=== PATIENT | male | born 2000 ===

== ENCOUNTER 2024-03-20 04:23 | Emergency (ER) | payer OTHER, SELFPAY ==
[2024-03-20 04:26] VITALS: BP 127/86
--- NOTE | 2024-03-20 04:41 | ED.GENMED ---
History of Present Illness
General
Chief Complaint: Alcohol Problem
Time Seen by Provider: 03/20/24 04:34
Travel History
Have you had any contact with someone who has COVID-19?: No
Do you have any symptoms of coronavirus? Fever > 100 degrees, chills, cough, shortness of breath, sore throat, loss of taste or smell, muscle aches, or headache?: No
History of Present Illness
History of Present Illness:
HPI: The patient states he was in [place] and was pulled over and failed a field sobriety test. He states the breathalyzer read 0 however he was given a citation for [place]. He states he takes Abilify and Zoloft. He denies any illegal substance
use or any other medications. He has no symptoms.
EXAM:
GENERAL: Well appearing in no distress
HEENT: Moist oral mucosa
CARDIOVASCULAR: No murmurs, normal heart rate, regular rhythm, No chest wall tenderness
PULMONARY: No respiratory distress, breath sounds are clear and equal
ABDOMEN: Soft with no peritoneal signs, no tenderness
NEUROLOGIC: Excellent strength all extremities, no coordination deficits, normal finger-nose testing, the patient walked without difficulty
PSYCHIATRIC: Appropriate mental status, normal insight and judgement, the patient does not appear clinically intoxicated
EXTREMITIES: Nontender, no edema, moves all extremities equally
SKIN: No rash, no lesions
TIME OF INITIAL ENCOUNTER: 4:35 AM
NUMBER AND COMPLEXITY OF PROBLEMS ADDRESSED AT THE ENCOUNTER
� Chronic conditions affecting care: No significant past medical history but does take Abilify and Zoloft
� Acute Exacerbation and/or Progression of Chronic Illness: This is an acute problem
� Differential Diagnosis includes: Medication side effect, illegal substance use, no illegal substance use
AMOUNT AND/OR COMPLEXITY OF DATA TO BE REVIEWED AND ANALYZED
� I performed an independent evaluation of and my interpretation is:
EKG:
CT:
X-rays:
Laboratory Studies: UDS entirely negative
Other:
� Review of other/old records: The patient had a sleep study in 2020
� Clinical information was obtained by an independent historian: I spoke to the father bedside
� Prescriptions/Medications Considered but not given:
� Further testing considered but not performed:
RISK OF COMPLICATIONS AND/OR MORBIDITY OR MORTALITY OF PATIENT MANAGEMENT
� Social determinants of health affecting care: Lives at home
� Discussion with other providers:
� Escalation of care including admission/observation vs risk of discharge considered: Although patient states he received a DUI citation and had 0 on the breathalyzer, he wants to prove that he has not had anything else. He just
admits to Abilify and Zoloft use. He denies any benzo use. He denies any other illicit drug. UDS negative.
Phy Exam
Physical Exam
Physical Exam:
See HPI
Scores
Withdrawal Assessment of Alcohol
Withdrawal Assessment Completed?: Not applicable
Course
Orders/Labs/Results
Orders:
Orders
03/20/24 04:48
Drug Screen, Urine [Urine Drug Abuse Screen] Urgent
Date Specimen was Collected: 03/20/24
Time Specimen was Collected: 04:46
Vital Signs
Initial and Last Documented VS:
Initial Vital Signs
Temp Pulse Resp BP Pulse Ox
99.9 F 70 16 127/86 96
03/20/24 04:26 03/20/24 04:26 03/20/24 04:26 03/20/24 04:26 03/20/24 04:26
Last Documented Vital Signs
Temp Pulse Resp BP Pulse Ox
99.9 F 70 16 127/86 96
03/20/24 04:26 03/20/24 04:26 03/20/24 04:26 03/20/24 04:26 03/20/24 04:26
*Critical Care Note
Total Time (30-74mins, 75-104mins- exclusive of procedures): Not Applicable
ED Attending Note
-
Portions of this chart may have been created with voice recognition software.� Occasional wrong word or��sound alike� substitutions may have occurred due to the inherent limitations of voice recognition software.
Discharge Plan
Departure
Referrals:
Domenic Nettles MD [Family Provider] -
Interventions
Interventions:
*Risk Screen - Suicide Last Done: 03/20/24 04:26
*General Assessment Last Done: 03/20/24 04:26
*Neglect/Abuse Screening Last Done: 03/20/24 04:26
ED- Fall Risk Assessment Last Done: 03/20/24 04:35
ED- Neurological Assessment Last Done: 03/20/24 04:35
ED-Psychological Assessment Last Done: 03/20/24 04:35
Discharge Date and Time
Print Language: SWAZI
[2024-03-20 05:37] LABS: Amphetamines Negative (Negative); Barbiturates Negative (Negative); Benzodiazepines Negative (Negative); Buprenorphine Negative (Negative); Cocaine Negative (Negative); Marijuana Negative (Negative); Methadone Negative (Negative); Methamphetamines Negative (Negative); Opiates Negative (Negative); Phencyclidine Negative (Negative); Tricyclic Antidepressants Negative (Negative)
== END 2024-03-20 05:40 | disposition home or self-care (01) ==
LOC: EMR 04:23
PROVIDERS: EMERGENCY PHYSICIAN Emergency Medicine; FAMILY PHYSICIAN Family Medicine
DX: Z03.89 Encounter for observation for other suspected diseases and conditions ruled out (principal); Z79.899 Other long term (current) drug therapy
CPT/HCPCS: 99283; 80306

== ENCOUNTER 2025-03-15 22:38 | Emergency (ER) | payer OTHER, SELFPAY ==
[2025-03-15 22:47] VITALS: BP 136/90
[2025-03-15 23:22] VITALS: BP 131/78
[2025-03-15 23:24] VITALS: BMI 24.3
--- NOTE | 2025-03-15 23:45 | ED.GENMED ---
History of Present Illness
General
Chief Complaint: Crisis Evaluation
Source: patient and family
Exam Limitations: none
Time Seen by Provider: 03/15/25 23:16
Nursing documentation reviewed up to this point in time: agreed with
History of Present Illness
History of Present Illness:
Note:
CHIEF COMPLAINT(S)
Depression
HISTORY OF PRESENT ILLNESS
The patient is a 24-year-old male presenting with symptoms of depression. He reports feeling down and describes his mood as depressed, although he denies any suicidal or homicidal ideation. The patient has a history of prior psychiatric
hospitalization and has experienced episodes in the past, indicating a recurrent pattern, but he mentions it has been a while since the last issue. He stated openness to hospitalization at [facility] if a bed is available. The patient denies any recent
use of drugs or alcohol. He is currently on medications, specifically aripiprazole, possibly prescribed as a mood stabilizer and antidepressant, and sertraline. He has no current physical complaints such as chest pain, shortness of breath, abdominal
pain, headache, nausea, vomiting, or blurry vision.
SOCIAL HISTORY
The patient does not smoke. He is currently a sophomore in college.
REVIEW OF SYSTEMS
- Psychiatric: Reports depression but denies suicidal or homicidal ideation.
- Cardiovascular: Denies chest pain or palpitations.
- Respiratory: Denies shortness of breath.
- Gastrointestinal: Denies abdominal pain.
- Neurological: Denies headache, nausea, vomiting, or blurry vision.
PHYSICAL EXAM
- General: Patient appears down and slightly depressed, but his affect is normal.
- Respiratory: Lungs are clear on auscultation.
- Cardiovascular: Heart is regular in rhythm.
- Gastrointestinal: Abdomen soft and non-tender.
- Integumentary: Skin is warm and dry with no rashes.
- Neurological: Patient is alert and oriented to person, place, and time.
PROBLEM LIST
- Acute: Depression
- Chronic: Bipolar disorder, Autism Spectrum Disorder
PLAN
The plan is for the patient to speak with a household worker. After discussing treatment options, patient request to go to intensive outpatient therapy. This plan is agreeable to me. Discussed with dad who is also in agreement.
DIFFERENTIAL DIAGNOSIS
The Differential Diagnosis includes, in no particular order and is not limited to:
1. Major Depressive Disorder
2. Bipolar Disorder
3. Adjustment Disorder with Depressed Mood
4. Generalized Anxiety Disorder
5. Substance-Induced Mood Disorder
6. Persistent Depressive Disorder (Dysthymia)
7. Cyclothymic Disorder
Disposition:
DIAGNOSIS
- Major Depressive Disorder / Recurrent Depressive Disorder (F33.9)
SUMMARY OF ENCOUNTER
The 24-year-old male patient presented with symptoms of depression, expressing an initial interest in inpatient treatment for his condition. Following a discussion with a household worker, the patient agreed to pursue intensive outpatient treatment,
noting that this method has been successful for him in the past. The patient has no suicidal or homicidal ideations, intent, or plan at this time.
DISPOSITION
Discharge with a referral for intensive outpatient treatment.
CONSIDERATION FOR ADMISSION
The patient initially considered inpatient treatment but ultimately decided on intensive outpatient care after discussion with a household worker.
PLAN
The patient will be discharged to engage in intensive outpatient treatment, which has been successful for him in the past.
PATIENT EDUCATION AND COUNSELING
The patient was informed about the benefits of intensive outpatient treatment and agreed to this plan. The family, particularly the patients father, was involved in the discussion and agreed with the proposed approach.
MEDICATION RECONCILIATION
The patient is currently taking aripiprazole and sertraline, continuing as prescribed. No new medications were administered or prescribed during this visit.
MEDICAL DECISION MAKING
Number and Complexity of Problems Addressed: The patient presented with a recurrent pattern of depression but no acute safety concerns such as suicidal or homicidal ideation. The decision for intensive outpatient care was based on previous success
with this modality and current mental health stability.
Data: Review of symptoms and history indicated a need for ongoing psychiatric support, considering current medications and treatment history.
Risk: The consideration for hospitalization underscored the need for a structured treatment approach. Social determinants, family involvement, and accessible mental health care were factored into the decision to opt for intensive outpatient
treatment.
Phy Exam
Physical Exam
Physical Exam:
.
General Physical Exam
General Presentation: well appearing and no apparent distress
General Skin: warm and dry
Course
Orders/Labs/Results
Orders:
Orders
03/15/25 23:12
Crisis Consult Urgent
Reason for Consult: depression
Vital Signs
Initial and Last Documented VS:
Initial Vital Signs
Temp Pulse Resp BP Pulse Ox
98.4 F 79 18 136/90 98
03/15/25 22:47 03/15/25 22:47 03/15/25 22:47 03/15/25 22:47 03/15/25 22:47
Last Documented Vital Signs
Temp Pulse Resp BP Pulse Ox
98.4 F 73 17 131/78 98
03/15/25 22:47 03/15/25 23:22 03/15/25 23:22 03/15/25 23:22 03/15/25 23:22
*Critical Care Note
Total Time (30-74mins, 75-104mins- exclusive of procedures): Not Applicable
ED Attending Note
-
Portions of this chart may have been created with voice recognition software.� Occasional wrong word or��sound alike� substitutions may have occurred due to the inherent limitations of voice recognition software.
Discharge Plan
Departure
Patient Disposition: Home (Routine Discharge)
Date of Disposition: 03/15/25
Time of Disposition: 23:54
Patient with high blood pressure during this ER visit?: Yes
Discharge Problem:
Depression
Instructions: Depression, Adult (DC)
Prescriptions:
No Action
sertraline 50 mg Tablet
50 mg PO DAILY
aripiprazole [Abilify] 5 mg Tablet
5 mg PO DAILY
Referrals:
Domenic Nettles MD [Family Provider, Family Practice]
Aidan Gaines [Active, Psychiatry]
Activity Restrictions/Additional Instructions:
Thank You for choosing [facility].
It was a pleasure meeting you and taking part in your care. We hope for your continued healing and wellness.
Please read discharge instructions in their entirety. However, they are for general education and may not describe your exact diagnosis at discharge. Information on your ER visit and medical conditions were discussed with you along with appropriate
follow up information...
If indicated, please take your medications as instructed and indicated on discharge paperwork.
Please schedule a follow up appointment as directed. Call to schedule an appointment
Please return to the emergency department with ANY change in, persisting, or worsening of symptoms. If any of your symptoms do not improve, or persist, or become more severe within 6-12 hours, please return to the emergency department for further
care.
Please return to the emergency department if you develop a headache, neck pain/stiffness, fever greater than 100.4F, chest pain, shortness of breath, persistent nausea, vomiting, slurred speech, difficulty walking, numbness/tingling, weakness, signs
of infection or any other symptoms that are worrisome to you.
If you have any questions or concerns please do not hesitate to call the Hospital at
Interventions
Interventions:
*Risk Screen - Suicide Last Done: 03/15/25 22:47
*General Assessment Last Done: 03/15/25 22:47
*Neglect/Abuse Screening Last Done: 03/15/25 22:51
*ED- Fall Risk Assessment Last Done: 03/15/25 23:57
*ED COVID-19 Vaccine History Last Done: 03/15/25 22:47
*Nursing Disposition Last Done: 03/15/25 23:57
ED-Psychological Assessment Last Done: 03/15/25 23:20
Discharge Date and Time
Discharge Date/Time: 03/16/25 00:00
Print Language: VIETNAMESE
== END 2025-03-16 | disposition home or self-care (01) ==
LOC: EMR 22:38
PROVIDERS: EMERGENCY PHYSICIAN Student in an Organized Health Care Education/Training Program; FAMILY PHYSICIAN Family Medicine
DX: F33.9 Major depressive disorder, recurrent, unspecified (principal); Z79.899 Other long term (current) drug therapy
CPT/HCPCS: 99283

== ENCOUNTER 2025-05-15 11:23 | Emergency (ER) | payer OTHER, SELFPAY ==
[2025-05-15 11:27] VITALS: BP 121/81
[2025-05-15 12:03] LABS: Hematocrit 46.5 % (39.0-52.0); Hemoglobin 15.9 g/dL (13.0-18.0); Mean Corp Hgb Conc. 34.2 g/dL (33.0-37.0); Mean Corpuscular Volume 86.4 fL (80.0-94.0); Nucleated Red Blood Cells % 0 % (-); Platelet Count 129 10^3/uL (130-400); Red Cell Dist. Width 12.9 % (11.5-14.5)
[2025-05-15 12:17] LABS: ALT (SGPT) 15 U/L (0-50); AST (SGOT) 18 U/L (17-59); Acetaminophen < 10 ug/ml (10-30); Albumin 4.9 g/dl (3.5-5.0); Alkaline Phosphatase 76 U/L (38-126); Blood Urea Nitrogen 15 mg/dl (9-20); Calcium 9.7 mg/dl (8.4-10.2); Carbon Dioxide 26 mmol/L (22-30); Chloride 106 mmol/L (98-107); Glucose 101 mg/dl (70-99); Potassium 3.9 mmol/L (3.5-5.1); Salicylate < 1.0 mg/dl (2.0-20.0); Sodium 141 mmol/L (135-145); Total Protein 7.5 g/dl (6.3-8.2); eGFR > 60.00
--- NOTE | 2025-05-15 15:38 | ED.GENMED ---
History of Present Illness
General
Chief Complaint: Crisis Evaluation
Source: patient and family (Mother and father)
Exam Limitations: none
Time Seen by Provider: 05/15/25 11:46
Nursing documentation reviewed up to this point in time: agreed with
History of Present Illness
History of Present Illness:
25-year-old male with history as noted presents to the ER with his mother and father for evaluation of depression and suicidal threats. Patient is currently doing an intensive outpatient treatment program after a recent inpatient psychiatric stay
at [facility]; he has been doing this for about 2 weeks. He says that today he was talking with a female friend and says that he became very emotional and said that he wanted to hurt himself. He says that he did not have any specific plan and that
this was set in a fit of emotion rather than due to true suicidal intent. He says that his friend called the police to do a wellness check and they brought him to the emergency room to be assessed by crisis. He denies being suicidal. He does
admit to continued depression and anxiety. Denies homicidal ideation. He denies any hallucinations. He denies any drug or alcohol use. He denies any history of prior suicide attempts. Parents at bedside said that they have not witnessed any
concerning behaviors at home although they are concerned about his continued depression and anxiety. No weapons available in the house. Patient currently takes Abilify and sertraline, doses were increased while he was at [facility].
Review of Systems
Review of Systems
All Other Systems: ROS reviewed and negative except as documented in HPI and ROS
Psychiatric: Reports depression and anxiety; Denies suicidal or hallucinations
Phy Exam
Physical Exam
Physical Exam:
General: Well appearing and non-toxic
HEENT: protecting airway
Neck: appears supple
CV: No evidence of cyanosis
Resp: No accessory muscle use
Abd: Non-distended
Extremities: No deformities
Neuro: Alert
Psych: Depressed mood, normal affect, reasonable insight
Skin: Intact
Scores
Heart Failure Risk
Heart Failure Risk Score: Not Applicable
Heart Score for Chest Pain Patients
STEMI patient?: Not applicable
Withdrawal Assessment of Alcohol
Withdrawal Assessment Completed?: Not applicable
Course
Orders/Labs/Results
Orders:
Orders
05/15/25 11:57
Acetaminophen Urgent
Alcohol Urgent
Complete Blood Count/With Diff Urgent
Comprehensive Metabolic Panel Urgent
Salicylate Urgent
05/15/25 12:14
Crisis Consult Routine
Reason for Consult: SI
Abnormal Lab Results
05/15/25
11:57
WBC 4.2 L 10^3/uL
(4.8-10.8)
Plt Count 129 L 10^3/uL
(130-400)
Absolute Lymphs (auto) 0.7 L 10^3/uL
(1.2-3.4)
Lymphocytes % 16.9 L %
(20.5-51.1)
Glucose 101 H mg/dl
(70-99)
Salicylates < 1.0 L mg/dl
(2.0-20.0)
Acetaminophen < 10 L ug/ml
(10-30)
05/15/25 11:57
05/15/25 11:57
Vital Signs
Initial and Last Documented VS:
Initial Vital Signs
Temp Pulse Resp BP Pulse Ox
37.0 C 98 16 121/81 98
05/15/25 11:27 05/15/25 11:27 05/15/25 11:27 05/15/25 11:27 05/15/25 11:27
Last Documented Vital Signs
Temp Pulse Resp BP Pulse Ox
37.0 C 98 16 121/81 98
05/15/25 11:27 05/15/25 11:27 05/15/25 12:43 05/15/25 11:27 05/15/25 11:27
MDM/Problems Addressed
Differential Diagnosis Includes:
Depression
MDM/Problems Addressed:
25-year-old male with history as noted, recent inpatient psychiatric hospitalization for suicidality at [facility] currently in an intensive outpatient psychiatric treatment program presents after making suicidal threats while in an emotional
discussion with a female friend. He says that he said this in a fit of emotion and that he did not mean it and is not actively suicidal. He denies specific plan. Denies homicidal ideation. Current lives at home with parents, they have not
noticed any concerning behaviors for reason red flags for self-harm/suicidality. Patient assessed by crisis they feel there is no indication for involuntary inpatient hospitalization and I tend to agree with this assessment. I did offer voluntary
inpatient placement but patient does not feel he would benefit from it, wants to continue pursuing his intensive outpatient treatment program. Parents also feel comfortable with this. Stable for discharge.
Chronic conditions affecting care:
Depression/anxiety
*Pulse Oximetry
SaO2: 98
Oxygen Mode of Delivery: Room air
Patient hypoxic: no (98%)
*Critical Care Note
Total Time (30-74mins, 75-104mins- exclusive of procedures): Not Applicable
Data Reviewed
Review of Other/Old Records Reveals: Labs and Records
Source: patient, records and family
Patient Management
Discussion with other providers: Other (Discussed with crisis staff)
ED Attending Note
-
Portions of this chart may have been created with voice recognition software.� Occasional wrong word or��sound alike� substitutions may have occurred due to the inherent limitations of voice recognition software.
Discharge Plan
Departure
Patient Disposition: Home (Routine Discharge)
Date of Disposition: 05/15/25
Time of Disposition: 13:46
Patient with high blood pressure during this ER visit?: No
Discharge Problem:
Suicidal ideation
Instructions: Suicide prevention, Depression in adults - ED discharge instructions
Prescriptions:
No Action
sertraline 50 mg Tablet
50 mg PO DAILY
aripiprazole [Abilify] 5 mg Tablet
5 mg PO DAILY
Referrals:
Domenic Nettles MD [Family Provider, [facility]]
Activity Restrictions/Additional Instructions:
Thank you for visiting the Emergency Department at [facility].
1. Please schedule a follow up appointment as directed. Call first thing tomorrow morning to make an appointment.
2. If indicated, please take your medications as instructed and indicated on discharge paperwork.
3. If any of your symptoms do not improve, or persist, or become more severe within 6-12 hours, please return to the emergency department for further care.
4. Please return to the emergency department if you develop a headache, neck pain/stiffness, fever greater than 100.4F, chest pain, shortness of breath, persistent nausea, vomiting, slurred speech, difficulty walking, numbness/tingling, weakness,
signs of infection or any other symptoms that are worrisome to you.
Please call [phone] if you have any questions.
Interventions
Interventions:
*Risk Screen - Suicide Last Done: 05/15/25 11:27
*General Assessment Last Done: 05/15/25 11:58
*Neglect/Abuse Screening Last Done: 05/15/25 11:27
*ED- Fall Risk Assessment Last Done: 05/15/25 11:51
*ED COVID-19 Vaccine History Last Done: 05/15/25 11:51
*Nursing Disposition Last Done: 05/15/25 13:50
ED-Psychological Assessment Last Done: 05/15/25 11:58
Discharge Date and Time
Discharge Date/Time: 05/15/25 13:51
Print Language: HUNGARIAN
== END 2025-05-15 13:51 | disposition home or self-care (01) ==
LOC: EMR 11:23
PROVIDERS: EMERGENCY PHYSICIAN Emergency Medicine; FAMILY PHYSICIAN Family Medicine
DX: R45.851 Suicidal ideations (principal); F32.A Depression, unspecified; F41.9 Anxiety disorder, unspecified
CPT/HCPCS: 99283; 80053; 80143; 80179; 82077; 85025

== ENCOUNTER 2025-06-07 22:51 | Emergency (ER) | payer OTHER, SELFPAY ==
[2025-06-07 22:59] VITALS: BP 96/69
[2025-06-07 23:16] VITALS: BMI 22.8
[2025-06-07 23:33] LABS: Glucose - Point of Care 104 mg/dl (70-99)
[2025-06-07] MEDS: NSS 1000 IV (23:39)
[2025-06-08 00:03] LABS: APTT 27.1 Sec (23.4-35.0); INR 0.96; PT 13.1 Sec (11.4-14.6)
[2025-06-08 00:04] LABS: Hematocrit 43.3 % (39.0-52.0); Hemoglobin 14.7 g/dL (13.0-18.0); Mean Corp Hgb Conc. 33.9 g/dL (33.0-37.0); Mean Corpuscular Volume 86.4 fL (80.0-94.0); Nucleated Red Blood Cells % 0 % (-); Platelet Count 135 10^3/uL (130-400); Red Cell Dist. Width 13.1 % (11.5-14.5)
[2025-06-08 00:09] LABS: ALT (SGPT) 21 U/L (0-50); AST (SGOT) 21 U/L (17-59); Acetaminophen < 10 ug/ml (10-30); Albumin 4.5 g/dl (3.5-5.0); Alkaline Phosphatase 80 U/L (38-126); Blood Urea Nitrogen 15 mg/dl (9-20); Calcium 9.8 mg/dl (8.4-10.2); Carbon Dioxide 28 mmol/L (22-30); Chloride 104 mmol/L (98-107); Estimated Creatinine Clearance > 125 ml/min; Glucose 94 mg/dl (70-99); Potassium 4.1 mmol/L (3.5-5.1); Salicylate < 1.0 mg/dl (2.0-20.0); Sodium 138 mmol/L (135-145); Total Protein 6.8 g/dl (6.3-8.2); eGFR > 60.00
--- NOTE | 2025-06-08 00:24 | ED.GENMED ---
History of Present Illness
General
Chief Complaint: Overdose Intentional
Source: patient and family
Exam Limitations: none
Time Seen by Provider: 06/07/25 23:21
Nursing documentation reviewed up to this point in time: agreed with
History of Present Illness
History of Present Illness:
Note:
CHIEF COMPLAINT(S)
The patient presents with an intentional overdose on multiple medications.
HISTORY OF PRESENT ILLNESS
The patient, a 25-year-old male, reports intentionally consuming an overdose of several medications approximately one hour prior to arrival. He ingested six to seven 100 mg tablets of Tramadol, an unspecified handful of 50 mg Zoloft tablets, and two
to three 10 mg Abilify tablets. Additionally, he took one or two tablets of Melatonin. The patient admitted to suicidal ideation and has a history of previous intentional self-harm attempts. He reports doing this due to feeling unwell mentally. He
denies taking Wellbutrin, despite dumping it out along with the other medications.
PLAN
1. The patient will undergo medical clearance, which includes completion of an Electrocardiogram and relevant laboratory work.
2. The patient will be monitored, and the crisis team will be involved for psychiatric evaluation and management.
3. The patient will wear paper scrubs, remain in the room, and comply with safety protocols, including a one-to-one observation.
4. Discussion of treatment options, including voluntary admission to a psychiatric facility, will be pursued with the crisis team.
5. Food and fluid needs will be attended to during his stay.
DIFFERENTIAL DIAGNOSIS
The Differential Diagnosis includes, in no particular order and is not limited to:
1. Medication overdose
2. Major depressive disorder with suicidal ideation
3. Bipolar disorder
4. Substance-induced mood disorder
5. Generalized anxiety disorder
6. Personality disorder
7. Adjustment disorder
8. Acute stress disorder
9. Dysthymia
10. Panic disorder
Disposition:
SUMMARY OF ENCOUNTER
The patient, a 25-year-old male, presented to the emergency department following an intentional overdose involving multiple medications, including Tramadol, sertraline, and aripiprazole. The overdose was taken approximately one hour prior to
arrival. The crisis team was consulted and advised a six-hour ER observation period. During the visit, the patient expressed compliance and willingness to sign himself in for in-patient psychiatric therapy.
DISPOSITION
The patient will be discharged to a psychiatric facility under a 201 voluntary commitment.
ASSESSMENT
Intentional medication overdose in the context of suicidal ideation and psychiatric instability.
PLAN
1. Complete a six-hour ER observation period.
2. Discharge the patient to a psychiatric facility for voluntary in-patient therapy.
MANAGEMENT OF THE PATIENTS CARE WAS DISCUSSED WITH
The crisis team was involved in the evaluation and management plan.
MEDICAL DECISION MAKING
-Complexity of Data Reviewed: Chronic conditions affecting care include previous intentional self-harm attempts and current suicidal ideation.
-Data:
Category 1
My independent interpretation of the Electrocardiogram will be completed as part of medical clearance.
Category 3
Discussion of management with the crisis team regarding the patients care plan and discharge to a psychiatric facility.
DIAGNOSIS
- T40.2X2A Poisoning by other opioids, intentional self-harm, initial encounter
- T43.205A Poisoning by other unspecified psychotropic drugs, intentional self-harm, initial encounter
- F32.9 Major depressive disorder, single episode, unspecified
Phy Exam
Physical Exam
Physical Exam:
.
Course
Orders/Labs/Results
Orders:
Orders
06/07/25 23:02
1:1 Observation - Suicide/ Violent Behavior As Directed
Crisis Consult Urgent
Reason for Consult: SI attempt
06/07/25 23:21
Bedside Glucose- Treatment ONCE
Cardiac Monitoring- Treatment ONCE
Urinalysis Reflex To Culture Urgent
Urine Drug Abuse Screen Urgent
0.9% Sodium Chloride 1000 ml [Nss] 1,000 ml IV BOLUS
06/07/25 23:33
Acetaminophen Urgent
Alcohol Urgent
Complete Blood Count/With Diff Urgent
Comprehensive Metabolic Panel Urgent
PTT Urgent
Prothrombin Time Urgent
Salicylate Urgent
06/07/25 23:40
Electrocardiogram (*1) Urgent
Reason for Study: Other
Other Reason for Exam: overdose
EKG- Treatment ONCE
Abnormal Lab Results
06/07/25 06/07/25
23:31 23:33
WBC 4.4 L 10^3/uL
(4.8-10.8)
Absolute Lymphs (auto) 1.0 L 10^3/uL
(1.2-3.4)
Salicylates < 1.0 L mg/dl
(2.0-20.0)
Acetaminophen < 10 L ug/ml
(10-30)
POC Glucose 104 H mg/dl
(70-99)
06/07/25 23:33
06/07/25 23:33
Vital Signs
Initial and Last Documented VS:
Initial Vital Signs
Temp Pulse Resp BP Pulse Ox
98.3 F 85 20 96/69 100
06/07/25 22:59 06/07/25 22:59 06/07/25 22:59 06/07/25 22:59 06/07/25 22:59
Last Documented Vital Signs
Temp Pulse Resp BP Pulse Ox
97.5 F 63 16 96/69 99
06/08/25 01:00 06/08/25 02:15 06/08/25 02:15 06/07/25 22:59 06/08/25 01:00
*Pulse Oximetry
SaO2: 99
Oxygen Mode of Delivery: Room air
Patient hypoxic: no
*Critical Care Note
Total Time (30-74mins, 75-104mins- exclusive of procedures): 31
comment:
Critical care statement: A total of 31 minutes of critical care time was provided for this patient. This time is separate from time utilized to perform the aforementioned documented procedures. Aggregate critical care time includes only time
during which I was engaged in work directly related to the patient's care, as described above, whether at the bedside or elsewhere in the Emergency Department.
Update Note
Update Note:
Spoke with Dr. Barrientos from [facility] to review the ingestion and lab work. He recommends monitoring for 6 hours while in the ER.
ED Attending Note
-
Portions of this chart may have been created with voice recognition software.� Occasional wrong word or��sound alike� substitutions may have occurred due to the inherent limitations of voice recognition software.
Discharge Plan
Departure
Patient Disposition: Psych Facility
Date of Disposition: 06/08/25
Time of Disposition: 02:22
Discharge Problem:
Intentional overdose, Suicide attempt
Prescriptions:
No Action
sertraline 50 mg Tablet
50 mg PO DAILY
aripiprazole [Abilify] 5 mg Tablet
5 mg PO DAILY
Referrals:
UNKNOWN - PT DOES,NOT KNOW [Family Provider]
Activity Restrictions/Additional Instructions:
Thank You for choosing [facility].
It was a pleasure meeting you and taking part in your care. We hope for your continued healing and wellness.
Please read discharge instructions in their entirety. However, they are for general education and may not describe your exact diagnosis at discharge. Information on your ER visit and medical conditions were discussed with you along with appropriate
follow up information...
If indicated, please take your medications as instructed and indicated on discharge paperwork.
Please schedule a follow up appointment as directed. Call to schedule an appointment
Please return to the emergency department with ANY change in, persisting, or worsening of symptoms. If any of your symptoms do not improve, or persist, or become more severe within 6-12 hours, please return to the emergency department for further
care.
Please return to the emergency department if you develop a headache, neck pain/stiffness, fever greater than 100.4F, chest pain, shortness of breath, persistent nausea, vomiting, slurred speech, difficulty walking, numbness/tingling, weakness, signs
of infection or any other symptoms that are worrisome to you.
If you have any questions or concerns please do not hesitate to call the Hospital at or E-mail me directly at [email or web address]
Interventions
Interventions:
*Risk Screen - Suicide Last Done: 06/07/25 23:01
*General Assessment Last Done: 06/07/25 23:17
*Neglect/Abuse Screening Last Done: 06/07/25 23:01
*ED- Fall Risk Assessment Last Done: 06/07/25 23:17
*ED COVID-19 Vaccine History Last Done: 06/07/25 23:17
ED- Cardiac Assessment Last Done: 06/07/25 23:17
ED- Neurological Assessment Last Done: 06/07/25 23:17
ED-Psychological Assessment Last Done: 06/07/25 23:17
ED- Pulmonary Assessment Last Done: 06/07/25 23:17
Discharge Date and Time
Print Language: BHUTANESE
[2025-06-08 03:05] VITALS: BP 107/71
[2025-06-08 09:00] VITALS: BP 134/74
[2025-06-08 09:48] LABS: Urine Character Clear (Clear)
[2025-06-08 10:57] LABS: Urine Red Blood Cell 0-2 /HPF (0-2)
== END 2025-06-08 09:28 ==
LOC: EMR 22:51
PROVIDERS: EMERGENCY PHYSICIAN Student in an Organized Health Care Education/Training Program
DX: T40.2X2A Poisoning by other opioids, intentional self-harm, initial encounter (principal); X58.XXXA Exposure to other specified factors, initial encounter; F32.9 Major depressive disorder, single episode, unspecified
CPT/HCPCS: 96360; 99285; 80053; 80143; 80179; 80306; 81003; 81015; 82077; 82962; 85025; 85610; 85730; 87086; 93005